=== PATIENT | female | born 1970 | race Caucasian/White ===

== ENCOUNTER → 2023-12-19 | Outpatient (CLI) | payer BC ==
[~2023-12-19] MED LIST: DAILY VALUE1 EACH PO; FEXOFENADINE H180 M1 PO; FISH OIL1 IU PO; FLONASE ALLERG9.9 ML NS; INDERAL 10MG10 MG PO; LEXAPRO 10MG10 MG PO; LUTEIN6 MG PO; MAGNESIUM OXID200 MG PO; MELOXICAM5 MG PO; PROBIOTIC1 EAC2 PO
[2023-12-19 14:45] LABS: BASO # 0.01 K/mm3 (0.02-0.10); EOS # 0.01 K/mm3 (0.04-0.40); EOS % 0.1 % (1.0-5.0); HEMATOCRIT 43.6 % (37.0-47.0); HEMOGLOBIN 14.5 g/dL (12.5-16.0); MEAN CELL VOLUME 87 fl (78-100); MEAN CORPUSCULAR HEMOGLOBIN 29 pg (27-31); MEAN CORPUSCULAR HGB CONC 33 g/dL (33-37); MEAN PLATELET VOLUME 11.2 fl (7.4-10.4); MONO # 0.23 K/mm3 (0.20-0.80); NEU # 6.41 K/mm3 (1.40-6.50); PLATELET COUNT 205 K/mm3 (130-400); RED BLOOD COUNT 5.01 M/mm3 (4.10-5.30); RED CELL DISTRIBUTION WIDTH 12.2 % (11.5-14.5); WHITE BLOOD COUNT 7.4 K/mm3 (4.8-10.8)
== END ==
LOC: LAB 14:19
PROVIDERS: Nurse Practitioner Family
DX: M79.645 Pain in left finger(s) (principal)